=== PATIENT | female | born 1965 | race African-American/Black ===

== ENCOUNTER → 2022-01-06 11:03 | Outpatient (BNVA) | payer OTHER, SELFPAY | PROVIDERS: Visit Provider Physician Assistant | DX: S29.012D Strain of muscle and tendon of back wall of thorax, subsequent encounter (principal); S39.011D Strain of muscle, fascia and tendon of abdomen, subsequent encounter; X50.3XXD Overexertion from repetitive movements, subsequent encounter | CPT/HCPCS: 99204 ==

== ENCOUNTER → 2022-01-18 11:23 | Outpatient (BNVA) | payer OTHER, SELFPAY | PROVIDERS: Visit Provider Physician Assistant | DX: S39.011A Strain of muscle, fascia and tendon of abdomen, initial encounter (principal); X50.3XXA Overexertion from repetitive movements, initial encounter | CPT/HCPCS: 99213 ==

== ENCOUNTER → 2022-02-22 11:38 | Outpatient (BNVA) | payer OTHER, SELFPAY | PROVIDERS: Visit Provider Physician Assistant | DX: R10.11 Right upper quadrant pain (principal) | CPT/HCPCS: 99213 ==

== ENCOUNTER → 2022-03-15 11:36 | Outpatient (BNVA) | payer OTHER, SELFPAY | PROVIDERS: Visit Provider Physician Assistant | DX: S29.012D Strain of muscle and tendon of back wall of thorax, subsequent encounter (principal); S39.011D Strain of muscle, fascia and tendon of abdomen, subsequent encounter; X50.3XXD Overexertion from repetitive movements, subsequent encounter | CPT/HCPCS: 72072; 72100; 99215 ==

== ENCOUNTER → 2022-04-06 13:15 | Outpatient (BNVA) | payer OTHER, SELFPAY | PROVIDERS: Visit Provider Internal Medicine | DX: M54.2 Cervicalgia (principal); R10.9 Unspecified abdominal pain | CPT/HCPCS: 99213 ==

== ENCOUNTER → 2022-04-27 13:09 | Outpatient (BNVA) | payer OTHER, SELFPAY | PROVIDERS: Visit Provider Physician Assistant | DX: M54.2 Cervicalgia (principal); R10.9 Unspecified abdominal pain | CPT/HCPCS: 99213 ==